=== PATIENT | female | born 1950 | race Two or more races ===

== ENCOUNTER 2020-01-30 11:28 | Outpatient (CLI) | payer OTHER | END 2020-01-30 11:34 | disposition home or self-care (01) | LOC: RAD 11:28 | PROVIDERS: ATTEND Urology | DX: N28.89 Other specified disorders of kidney and ureter (principal); N20.0 Calculus of kidney ==

== ENCOUNTER 2020-01-31 10:12 | Outpatient (CLI) | payer OTHER | END 2020-01-31 10:22 | disposition home or self-care (01) | LOC: RAD 10:12 | PROVIDERS: ATTEND Urology | DX: I10 Essential (primary) hypertension (principal); N20.0 Calculus of kidney ==

== ENCOUNTER 2020-02-08 06:00 | Day surgery (SDC) | payer OTHER | END 2020-02-08 14:00 | disposition home or self-care (01) | LOC: CIR.AMB 06:00 | PROVIDERS: ATTEND Urology | DX: N20.0 Calculus of kidney (principal); Z20.828 Contact with and (suspected) exposure to other viral communicable diseases ==